=== PATIENT | male | born 1985 | race Two or more races ===

== ENCOUNTER 2018-12-03 17:19 | Emergency (ER) | payer OTHER ==
[~2018-12-03] VITALS: Ht 167.6 cm; Wt 69.9 kg
[2018-12-03 17:45] VITALS: BP 145/74
== END 2018-12-03 17:47 | disposition home or self-care (01) ==
LOC: ER 17:20
DX: M79.662 Pain in left lower leg (principal); M79.661 Pain in right lower leg; M79.621 Pain in right upper arm; M79.622 Pain in left upper arm; V43.53XA Car driver injured in collision with pick-up truck in traffic accident, initial encounter; Y93.89 Activity, other specified; Y92.413 State road as the place of occurrence of the external cause; Y99.8 Other external cause status
CPT/HCPCS: 99282; A4606